=== PATIENT | male | born 2000 | race Caucasian/White ===

== ENCOUNTER 2022-11-21 20:13 | Emergency (ER) | payer BC ==
--- NOTE | 2022-11-21 20:48 | ED ---
Upper Extremity HPI - General Chief Complaint: Extremity Injury, Upper Stated Complaint: right thumb injury Time Seen by Provider: 11/21/22 20:31 Source: patient, RN notes reviewed Mode of arrival: ambulatory Limitations: no limitations - History of Present Illness Initial Comments: This is a 22-year-old male who presents to the emergency department for a right thumb injury. 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 He initially went to [facility] urgent care. He had x-rays done, which appeared largely unremarkable, however a soft tissue injury on the back of the thumb limited visibility. He was told that they would call him back later after the radiologist reviewed this. His largest concern is that he has bleeding under the fingernail, and this is causing a throbbing sensation and he would like to have this drained. He otherwise still has full range of motion of the thumb. He took ibuprofen and Tylenol around 4 PM. Tetanus vaccine is up-to-date. Denies any fevers, chills, sore throat, cough, dyspnea, chest pain, palpitations, abdominal pain, nausea, vomiting, diarrhea, back pain, or headaches. MD Complaint: Injury to:: right, finger (thumb) - Related Data Previous Rx's Medication Instructions Recorded Cephalexin [Keflex] 500 mg PO Q6HR 5 Days #20 cap 11/21/22 Allergies Allergy/AdvReac Type Severity Reaction Status Date / Time No Known Allergies Allergy Verified 11/21/22 20:18 Review of Systems ROS Statement: Those systems with pertinent positive or pertinent negative responses have been documented in the HPI. ROS Other: All systems not noted in ROS Statement are negative. Past Medical History Past Medical History: No Reported History History of Any Multi-Drug Resistant Organisms: None Reported Past Surgical History: No Surgical Hx Reported Past Psychological History: Anxiety, Depression Smoking Status: Never smoker Past Alcohol Use History: None Reported Past Drug Use History: None Reported General Exam Limitations: no limitations General appearance: alert, in no apparent distress Head exam: Present: atraumatic, normocephalic, normal inspection Respiratory exam: Present: normal lung sounds bilaterally. Absent: respiratory distress, wheezes, rales, rhonchi, stridor Cardiovascular Exam: Present: regular rate, normal rhythm, normal heart sounds. Absent: systolic murmur, diastolic murmur, rubs, gallop, clicks Extremities exam: Present: other (Subungual hematoma to the right thumb. Superficial avulsion injury to the finger pad of the right thumb. No active bleeding.) Neurological exam: Present: alert, oriented X3, CN II-XII intact Psychiatric exam: Present: normal affect, normal mood Course Vital Signs 11/21/22 11/21/22 20:15 21:32 Temperature 97.9 F 97.8 F Pulse Rate 50 L 65 Respiratory 18 20 Rate Blood Pressure 154/79 126/76 O2 Sat by Pulse 99 99 Oximetry Medical Decision Making - Medical Decision Making This is a 22-year-old male who presents to the emergency department for a right thumb injury. Was pt. sent in by a medical professional or institution? @ -No Did you speak to anyone other than the patient for history? @ -No Did you review nursing and triage notes? @ -Yes, and I agree, it is accurate with regards to the patient's symptoms. Were old charts reviewed? @ -No Differential Diagnosis? @ -Differential Thumb Pain/Injury: Fracture, contusion, dislocation, laceration, avulsion, subungual hematoma, this is not meant to be an all-inclusive list. EKG interpreted by me (3pts min.)? @ -Not obtained X-rays interpreted by me (1pt min.)? @ -Not obtained CT interpreted by me (1pt min.)? @ -Not obtained U/S interpreted by me (1pt. min.)? @ -Not obtained What testing was considered but not performed? (CT, X-rays, U/S, labs)? Why? @ -Discussed repeating x-rays of the right thumb. Patient declines as he had this done at urgent care and the majority of his pain at this point is associated around the subungual hematoma and he has full ROM. What meds were considered but not given? Why? @ -None Did you discuss the management of the patient with other professionals? @ -No Did you reconcile home meds? @ -No Was smoking cessation discussed for >3mins.? @ -No Was critical care preformed (if so, how long)? @ -No Were there social determinants of health that impacted care today? How? (Homelessness, low income, unemployed, alcoholism, drug addiction, transportation, low edu. Level, literacy, decrease access to med. care, [facility], rehab)? @ -No Was there de-escalation of care discussed even if they declined? (Discuss DNR or withdrawal of care, Hospice)? @ -No What co-morbidities impacted this encounter? (DM, HTN, Smoking, COPD, CAD, Cancer, CVA, Hep., AIDS, mental health diagnosis, sleep apnea, morbid obesity)? @ -None Was patient admitted / discharged? @ -Discharged. Electrocautery was used to drain the subungual hematoma. Patient noted significant relief in symptoms afterwards and a large amount of blood was produced. The soft tissue injury on the back of the thumb was fairly superficial and no repair was indicated. His tetanus status is already up-to-date. We discussed repeat x-rays, however the patient declined due to having x-rays done at urgent care. I am also in agreement with this given that the pain was likely associated with the subungual hematoma and improved significantly following drainage. He also has full range of motion of the thumb. He inquired about starting antibiotics today due to his hands being dirty all of the time due to his job and the open wound on the back of the thumb. I'm in agreement with this and a prescription for Keflex was provided with dosing instructions reviewed. Otherwise advised alternating with ibuprofen and Tylenol as needed for pain relief. Undiagnosed new problem with uncertain prognosis? @ -None Drug Therapy requiring intensive monitoring for toxicity (Heparin, Nitro, Insulin, Cardizem)? @ -None Were any procedures done? @ -None Diagnosis/symptom? @ -Subungual hematoma, right thumb injury Acute, or Chronic, or Acute on Chronic? @ -Acute Uncomplicated (without systemic symptoms) or Complicated (systemic symptoms)? @ -Uncomplicated Side effects of treatment? @ -None Exacerbation, Progression, or Severe Exacerbation] @ -Not applicable Poses a threat to life or bodily function? @ -No Return precautions reviewed in depth, the patient is instructed to return to the emergency department with any new, worsening, or concerning symptoms. Patient verbalized understanding. This case was discussed in detail with the attending ED physician, Dr. Ramon. Presentation, findings, and treatment plan discussed in detail as well. Disposition Clinical Impression: Subungual hematoma of right thumb Disposition: HOME SELF-CARE Instructions (If sedation given, give patient instructions): Subungual Hematoma (ED), Laceration (ED) Additional Instructions: Return to the emergency department with any new, worsening, or concerning symptoms. Alternate with ibuprofen and Tylenol for pain relief. Take the antibiotic as prescribed for 5 days. You can also apply ice for 10-15 minutes every 2-3 hours. Follow up with your primary care provider in 1-2 days. Prescriptions: Cephalexin [Keflex] 500 mg PO Q6HR 5 Days #20 cap Is patient prescribed a controlled substance at d/c from ED?: No Referrals: None,Stated [Primary Care Provider] - 1-2 days
[2022-11-21] MEDS ORDERED: CEPHALEXIN 500MG STARTER PACK 4 CAP BTL PO STA (21:07)
[2022-11-21] MEDS ORDERED: IBUPROFEN 600 MG STARTER PACK 4 TAB BTL PO STA (21:07)
[2022-11-21 21:33] VITALS: BP 126/76; PULSE 65; RESP 20; TEMP 97.8
== END 2022-11-21 21:33 | disposition home or self-care (01) ==
LOC: EC 20:13
DX: S60.111A Contusion of right thumb with damage to nail, initial encounter (principal); Z86.59 Personal history of other mental and behavioral disorders; V58.4XXA Person boarding or alighting a pick-up truck or van injured in noncollision transport accident, initial encounter; Y99.0 Civilian activity done for income or pay
CPT/HCPCS: 99283